=== PATIENT | female | born 1970 | race Caucasian/White ===

== ENCOUNTER 2019-08-15 09:24 | Day surgery (SDC) | payer MEDICAID ==
[~2019-08-15] VITALS: Ht 157.5 cm; Wt 52.2 kg
[2019-08-15] VITALS (11 sets, daily range): BP systolic 93–122; BP diastolic 44–76
[2019-08-15] MEDS ORDERED: diphenhydrAMINE 25mg capsule PO PRN (09:40)
[2019-08-15] MEDS ORDERED: normal saline 1,000 ML IV SCH (09:40)
[2019-08-15] MEDS ORDERED: nitroGLYCERIN 0.4mg SUBLingual tab SL PRN (09:40)
[2019-08-15] MEDS ORDERED: LORazepam 0.5 MG tablet PO PRN (09:40)
[2019-08-15] MEDS ORDERED: OMEG1CAP13 PO (10:37)
[2019-08-15] MEDS ORDERED: CALC200T PO (10:37)
[2019-08-15] MEDS ORDERED: ATOR20TA66 PO (10:37)
[2019-08-15] MEDS ORDERED: ASPI-1053 PO (10:37)
[2019-08-15 10:58] LABS: BASOPHILS % (AUTO) 0.6 % (0-1); EOSINOPHILS # (AUTO) 0.3 X10'3 (0-0.9); EOSINOPHILS % (AUTO) 3.6 % (0-6); HEMATOCRIT 38.7 % (35.0-45.0); HEMOGLOBIN 12.7 g/dl (12.0-16.0); LYMPHOCYTES # (AUTO) 2.3 X10'3 (1.1-4.8); LYMPHOCYTES % (AUTO) 29.5 % (21-51); MEAN CORPUSCULAR HEMOGLOBIN 28.7 PG (27.0-31.0); MEAN CORPUSCULAR HGB CONC 32.7 g/dL (33.0-36.5); MEAN CORPUSCULAR VOLUME 87.9 FL (78-98); MEAN PLATELET VOLUME 8.9 FL (7.4-10.4); MONOCYTES # (AUTO) 0.7 X10'3 (0-0.9); MONOCYTES % (AUTO) 9.7 % (2-12); NEUTROPHILS # (AUTO) 4.4 X10'3 (1.8-7.7); NEUTROPHILS % (AUTO) 56.6 % (42-75); PLATELET COUNT 210 X10'3 (140-440); RED BLOOD COUNT 4.41 X10'6 (4.20-5.60); RED CELL DISTRIBUTION WIDTH 19.6 % (11.5-14.5); WHITE BLOOD COUNT 7.7 X10'3 (4.5-11.0)
[2019-08-15 11:15] LABS: PARTIAL THROMBOPLASTIN TIME 26 SECONDS (22-32)
[2019-08-15 11:19] LABS: ALBUMIN 4.3 G/DL (3.4-5.0); ANION GAP 11 (8-16); BLOOD UREA NITROGEN 26 MG/DL (7-18); BUN/CREATININE RATIO 24.3 (6.6-38.0); CALCIUM 9.2 MG/DL (8.5-10.1); CHLORIDE 107 MMOL/L (99-107); CREATININE 1.07 MG/DL (0.40-0.90); GLUCOSE 90 MG/DL (70-104); POTASSIUM 4.3 MMOL/L (3.5-5.1); SODIUM 142 MMOL/L (135-145); TOTAL CARBON DIOXIDE 24.3 MMOL/L (24-32); eGFR 54 ML/MIN
[2019-08-15 11:38] LABS: ANISOCYTOSIS 2+; PLATELET ESTIMATE NORMAL
[2019-08-15] MEDS ORDERED: iohexol 350 MG/ML 50ML vial IV ONE (12:22)
[2019-08-15] MEDS ORDERED: fentaNYL/PF 50MCG/1 ML 2ML syringe ONE (12:22)
[2019-08-15] MEDS ORDERED: iohexol 350MG/ML 100ml bottle IV ONE (12:22)
[2019-08-15] MEDS ORDERED: LIDOcaine 1% (10mg/ml)w/preservative injection 20ml MDV ONE (12:22)
[2019-08-15] MEDS ORDERED: midazolam 2 mg/2 ml injection ONE (12:22)
[2019-08-15] MEDS ORDERED: HYDROcodone/acetaminophen 10/325mg tab PO PRN (13:55)
[2019-08-15] MEDS ORDERED: proCHLORperazine 10 MG/2 ml inj IV PRN (13:55)
[2019-08-15] MEDS ORDERED: OXAZEpam 15mg capsule PO PRN (13:55)
[2019-08-15] MEDS ORDERED: ondansetron/PF 4mg/2ml inj IV PRN (13:55)
[2019-08-15] MEDS ORDERED: HYDROcodone/acetaminophen 5mg/325mg tablet PO PRN (13:55)
[2019-08-15] MEDS ORDERED: sodium chloride 0.45% 1,000 ML IV SCH (13:55)
--- NOTE | 2019-08-15 19:39 | NUR ---
Agree with Carri Lutz's assessments, documentation, and interventions.
== END 2019-08-15 19:30 | disposition home or self-care (01) ==
LOC: SSTAY O 09:24
PROVIDERS: ATTEND Internal Medicine Cardiovascular Disease
DX: R94.39 Abnormal result of other cardiovascular function study (principal); I25.10 Atherosclerotic heart disease of native coronary artery without angina pectoris; Z79.01 Long term (current) use of anticoagulants; Z87.891 Personal history of nicotine dependence; Z79.899 Other long term (current) drug therapy; R06.09 Other forms of dyspnea
CPT/HCPCS: 36415; 71046; 80048; 83880; 85025; 85610; 85730; 93005; 93458; 99152; 99153; C1769; J1644; J2001; J2250; J3010; J7030; Q0163; Q9967; A4620; A6258

== ENCOUNTER 2022-06-09 00:04 | Inpatient (IN) | payer MEDICAID ==
[~2022-06-09] VITALS: Ht 154.9 cm; Wt 50.0 kg
[~2022-06-09 00:04] MED LIST: ASPI-1053 PO; ATOR20TA66 PO; CALC200T PO; OMEG-5 PO
[2022-06-09 00:58] LABS: BASOPHILS # (AUTO) 0.1 X10'3 (0-0.2); BASOPHILS % (AUTO) 0.7 % (0-1); EOSINOPHILS # (AUTO) 0.1 X10'3 (0-0.9); HEMATOCRIT 31.9 % (35.0-45.0); HEMOGLOBIN 10.6 g/dl (12.0-16.0); LYMPHOCYTES # (AUTO) 1.9 X10'3 (1.1-4.8); LYMPHOCYTES % (AUTO) 15.4 % (21-51); MEAN CORPUSCULAR HEMOGLOBIN 28.5 PG (27.0-31.0); MEAN CORPUSCULAR HGB CONC 33.1 g/dL (33.0-36.5); MEAN PLATELET VOLUME 8.7 FL (7.4-10.4); MONOCYTES % (AUTO) 8.3 % (2-12); NEUTROPHILS # (AUTO) 9.4 X10'3 (1.8-7.7); NEUTROPHILS % (AUTO) 74.6 % (42-75); PLATELET COUNT 300 X10'3 (140-440); RED BLOOD COUNT 3.71 X10'6 (4.20-5.60); RED CELL DISTRIBUTION WIDTH 19.1 % (11.5-14.5); WHITE BLOOD COUNT 12.6 X10'3 (4.5-11.0)
[2022-06-09 01:03] LABS: ALANINE AMINOTRANSFERASE 31 U/L (12-78); ALBUMIN 3.2 G/DL (3.4-5.0); ALKALINE PHOSPHATASE 202 IU/L (46-116); ANION GAP 7 (8-16); ASPARTATE AMINO TRANSFERASE 39 U/L (10-37); BILIRUBIN,TOTAL 0.6 MG/DL (0.1-1.0); BLOOD UREA NITROGEN 19 MG/DL (7-18); BUN/CREATININE RATIO 17.9 (10.0-20.0); CALCIUM 8.7 MG/DL (8.5-10.1); CHLORIDE 100 MMOL/L (99-107); CREATININE 1.06 MG/DL (0.40-0.90); GLUCOSE 116 MG/DL (70-104); SODIUM 133 MMOL/L (135-145); TOTAL CARBON DIOXIDE 25.8 MMOL/L (24-32); TOTAL PROTEIN 6.3 G/DL (6.4-8.2); eGFR 54 ML/MIN
[2022-06-09] MEDS ORDERED: HYDR-3686 PO (02:22)
[2022-06-09] MEDS ORDERED: FURO-150 PO (02:22)
[2022-06-09] MEDS ORDERED: DOXY-1 PO (02:22)
[2022-06-09] MEDS ORDERED: magnesium 4gm in 100ml NS 100 ML IV PRN (02:35)
[2022-06-09] MEDS ORDERED: bisacodyl 10mg suppository rectal RC PRN (02:35)
[2022-06-09] MEDS ORDERED: ondansetron 4mg rapidly disintigrating tab PO PRN (02:35)
[2022-06-09] MEDS ORDERED: mag hydrox/Alum hydrox/simeth 30ml oral suspension PO PRN (02:35)
[2022-06-09] MEDS ORDERED: diphenhydrAMINE 50 mg/ml inj IV PRN (02:35)
[2022-06-09] MEDS ORDERED: magnesium hydroxide 30ml (MOM) UD suspension PO PRN (02:35)
[2022-06-09] MEDS ORDERED: acetaminophen 325mg tablet PO PRN ×2 (02:35)
[2022-06-09] MEDS ORDERED: acetaminophen 650mg rectal suppository RC PRN (02:35)
[2022-06-09] MEDS ORDERED: ondansetron/PF 4mg/2ml inj IV PRN (02:35)
[2022-06-09] MEDS ORDERED: diphenhydrAMINE 25mg capsule PO PRN (02:35)
[2022-06-09] MEDS ORDERED: potassium Cl 20 mEq SR tablet PO PRN (02:35)
[2022-06-09] MEDS ORDERED: ipratropium/albuterol 3ml nebule NEB PRN (02:35)
[2022-06-09] MEDS ORDERED: normal saline 1000ml 1,000 ML IV SCH (02:35)
[2022-06-09] MEDS ORDERED: magnesium Cl slow-release 64mg tablet PO PRN (02:35)
[2022-06-09] MEDS ORDERED: potassium Cl 40MEQ/1/2NS 520ml 520 ML IV PRN (02:35)
[2022-06-09] MEDS ORDERED: morphine 2 MG/ML inj. syringe IV PRN (02:35)
[2022-06-09] MEDS ORDERED: digoxin 250mcg (0.25mg) tablet PO SCH (02:50)
[2022-06-09] MEDS: CefTRIAXone/D5W-Rocephin 1gm 50 ML IV SCH (03:03)
[2022-06-09] MEDS ORDERED: digoxin 125mcg (0.125mg) tablet PO SCH ×2 (03:09→03:16)
[2022-06-09 03:23] LABS: HEMOGLOBIN A1C 5.6 % (4.5-6.2)
[2022-06-09 03:37] LABS: CREATINE KINASE 104 U/L (26-192); MAGNESIUM 1.6 MG/DL (1.5-2.4); PHOSPHORUS 4.1 MG/DL (2.3-4.5)
[2022-06-09 03:41] LABS: POTASSIUM 3.3 MMOL/L (3.5-5.1)
[2022-06-09 03:45] LABS: CLARITY,URINE CLEAR (Clear); COLOR,URINE STRAW (Yellow); GLUCOSE, URINE NEGATIVE (Neg); KETONES,URINE NEGATIVE (Neg); LEUKOCYTE ESTERASE ,URINE NEGATIVE (Neg); NITRITES, URINE NEGATIVE (Neg); OCCULT BLOOD,URINE MODERATE (Neg); PH,URINE 5.5 (4.8-8.0); PROTEIN,URINE NEGATIVE (Neg); UROBILINOGEN,URINE 0.2 E.U/dL (0.2-1.0)
[2022-06-09 03:45] LABS: APTT 25 SECONDS (22-32); D-DIMER 0.58 MG/L FEU (0-0.50)
[2022-06-09 03:46] LABS: UA COLLECTION TYPE CLN CATCH MIDSTREAM
[2022-06-09 03:54] LABS: WBC,URINE 0-4 /HPF (0-4)
[2022-06-09 03:55] LABS: BACTERIA,URINE NONE SEEN /HPF (Neg); MUCUS STRANDS FEW /LPF (Neg); SQUAMOUS EPITHELIAL CELL,UR FEW /LPF (FEW)
[2022-06-09 04:03] LABS: URINE AMPHETAMINE SCREEN NEGATIVE (Neg); URINE BARBITUATE SCREEN NEGATIVE (Neg); URINE BENZODIAZEPINES SCREEN NEGATIVE (Neg); URINE CANNABINOID SCREEN NEGATIVE (Neg); URINE COCAINE SCREEN NEGATIVE (Neg); URINE METHADONE SCREEN NEGATIVE (Neg); URINE OPIATE SCREEN NEGATIVE (Neg); URINE PHENCYCLIDINE SCREEN NEGATIVE (Neg)
[2022-06-09 04:34] LABS: PLATELET ESTIMATE NORMAL
[2022-06-09 04:35] LABS: ANISOCYTOSIS 2+
[2022-06-09 04:37] LABS: POLYCHROMASIA FEW
[2022-06-09 04:39] LABS: BURR CELLS FEW
[2022-06-09] MEDS ORDERED: LORazepam 0.5 MG tablet PO ONE (05:00)
[2022-06-09] MEDS: potassium Cl 20 mEq SR tablet PO PRN ×2 (06:42→11:46)
[2022-06-09] MEDS ORDERED: furosemide 10 MG/1 ML 10ml inj IV SCH ×2 (08:00)
[2022-06-09] MEDS: K and/or MAG REPLACEMENT MC SCH ×2 (08:00→20:00)
[2022-06-09] MEDS: azithromycin/NS 500mg/250ml 250 ML IV SCH (08:27)
[2022-06-09] MEDS: atorvastatin 20mg tablet PO SCH (08:28)
[2022-06-09] MEDS: aspirin 81mg, enteric-coated 1 TAB TABLET.DR PO SCH (08:28)
[2022-06-09] MEDS: pantoprazole 40mg Tablet.DR PO SCH (08:29)
[2022-06-09] MEDS: docusate sod 100mg capsule PO SCH ×2 (08:29→20:00)
[2022-06-09] MEDS: methylPREDNISolone sod succ 125mg/2ml vial IV SCH ×2 (08:31→20:32)
[2022-06-09] MEDS: heparin, porcine 5000 units/ml vial SQ SCH ×2 (08:32→20:35)
[2022-06-09] MEDS: sacubitril/valsartan 24mg-26mg tablet PO SCH ×2 (08:32→20:26)
[2022-06-09] MEDS: furosemide 40mg/4ml inj IV SCH ×2 (08:32→20:39)
[2022-06-09] MEDS: spironolactone 25 MG tablet PO SCH (10:56)
--- NOTE | 2022-06-09 11:09 | NUR ---
attempted to call report but nurse was unavailable at this time .
[2022-06-09 12:53] VITALS: BP 111/87
[2022-06-09] MEDS ORDERED: MULT-661 PO (15:12)
--- NOTE | 2022-06-09 16:22 | NUR ---
S/W patient and pharmacist Srinivasa. Doxycycline was the only new thing introduced the day she called 911. Confirmed pt has a new allergy of doxycycline, educated pt and updated EMR. Pt c/o RLS. Will page Dr Martinez for medication. Addendum: 06/09/22 at 1627 by Fadia Mariano RN Paged Dr Martinez: Linnette NatarajanA pt c/o RLS. No meds ordered. Requip? Fadia Brown Addendum: 06/09/22 at 1719 by Fadia Mariano RN 2nd page: Linnette Bethea pt c/o RLS. No meds ordered. Requip? Fadia Brown Addendum: 06/09/22 at 1733 by Fadia Marinao RN Dr Martinez called. Pt does not take requip or anything for RLS at home and declined to prescribe new med. Stated "she can take that up with her PCP in outpatient setting":. RN relayed and pt verbalized understanding.
[2022-06-09 17:00] VITALS: BP 102/65
[2022-06-09 18:00] VITALS: BP 101/55
--- NOTE | 2022-06-09 18:30 | NUR ---
Patient in room [facility]. I have received report from HENOK FAN and had the opportunity to ask questions and assume patient care.
[2022-06-09] MEDS: hydrOXYzine 25 MG tablet PO SCH (20:26)
[2022-06-09] MEDS: HYDROcodone/acetaminophen 5mg/325mg tablet PO PRN (20:28)
[2022-06-09] MEDS ORDERED: temazepam 15mg capsule PO PRN (21:00)
[2022-06-09 22:00] VITALS: BP 94/56
[2022-06-10] MEDS: HYDROcodone/acetaminophen 5mg/325mg tablet PO PRN ×4 (02:52→20:26)
[2022-06-10] MEDS: CefTRIAXone/D5W-Rocephin 1gm 50 ML IV SCH (03:39)
--- NOTE | 2022-06-10 06:19 | NUR ---
Problems reprioritized. Patient report given, questions answered & plan of care reviewed with MATI FAN.
[2022-06-10 06:20] LABS: BASOPHILS % (AUTO) 0.1 % (0-1); EOSINOPHILS % (AUTO) 0 % (0-6); HEMATOCRIT 38.4 % (35.0-45.0); HEMOGLOBIN 12.5 g/dl (12.0-16.0); LYMPHOCYTES # (AUTO) 0.6 X10'3 (1.1-4.8); LYMPHOCYTES % (AUTO) 2.3 % (21-51); MEAN CORPUSCULAR HGB CONC 32.4 g/dL (33.0-36.5); MEAN CORPUSCULAR VOLUME 86.4 FL (78-98); MEAN PLATELET VOLUME 9.2 FL (7.4-10.4); MONOCYTES # (AUTO) 0.4 X10'3 (0-0.9); MONOCYTES % (AUTO) 1.4 % (2-12); NEUTROPHILS # (AUTO) 23.6 X10'3 (1.8-7.7); NEUTROPHILS % (AUTO) 96.2 % (42-75); PLATELET COUNT 347 X10'3 (140-440); RED BLOOD COUNT 4.45 X10'6 (4.20-5.60); RED CELL DISTRIBUTION WIDTH 19.1 % (11.5-14.5); WHITE BLOOD COUNT 24.5 X10'3 (4.5-11.0)
[2022-06-10 06:33] LABS: ALANINE AMINOTRANSFERASE 26 U/L (12-78); ALBUMIN 2.9 G/DL (3.4-5.0); ALBUMIN/GLOBULIN RATIO 0.9 (1.1-1.5); ALKALINE PHOSPHATASE 188 IU/L (46-116); ANION GAP 10 (8-16); ASPARTATE AMINO TRANSFERASE 27 U/L (10-37); BILIRUBIN,TOTAL 0.3 MG/DL (0.1-1.0); BLOOD UREA NITROGEN 33 MG/DL (7-18); CALCIUM 8.5 MG/DL (8.5-10.1); CHLORIDE 103 MMOL/L (99-107); CHOL/HDL RATIO 6.5 (0.00-4.99); CHOLESTEROL 181 MG/DL (0-200); CREATININE 1.18 MG/DL (0.40-0.90); GLUCOSE 178 MG/DL (70-104); HDL CHOLESTEROL 28 MG/DL (35-60); LDL CHOLESTEROL 133 MG/DL (50-100); POTASSIUM 3.9 MMOL/L (3.5-5.1); SODIUM 140 MMOL/L (135-145); TOTAL CARBON DIOXIDE 27.2 MMOL/L (24-32); TOTAL PROTEIN 6.1 G/DL (6.4-8.2); TRIGLYCERIDES 85 MG/DL (20-135); eGFR 48 ML/MIN
[2022-06-10 07:11] VITALS: BP 100/60
[2022-06-10] MEDS: pantoprazole 40mg Tablet.DR PO SCH (07:39)
[2022-06-10] MEDS: digoxin 125mcg (0.125mg) tablet PO SCH (07:39)
[2022-06-10] MEDS: aspirin 81mg, enteric-coated 1 TAB TABLET.DR PO SCH (07:39)
[2022-06-10] MEDS: sacubitril/valsartan 24mg-26mg tablet PO SCH ×2 (07:40→20:25)
[2022-06-10] MEDS: atorvastatin 20mg tablet PO SCH (07:40)
[2022-06-10] MEDS: spironolactone 25 MG tablet PO SCH (07:40)
[2022-06-10] MEDS: heparin, porcine 5000 units/ml vial SQ SCH ×2 (07:41→20:25)
[2022-06-10] MEDS: azithromycin/NS 500mg/250ml 250 ML IV SCH (07:46)
[2022-06-10] MEDS: docusate sod 100mg capsule PO SCH ×2 (07:46→20:25)
[2022-06-10] MEDS: K and/or MAG REPLACEMENT MC SCH ×2 (08:00→20:17)
[2022-06-10] MEDS: methylPREDNISolone sod succ 125mg/2ml vial IV SCH ×2 (08:35→20:26)
[2022-06-10] MEDS: furosemide 40mg/4ml inj IV SCH ×2 (09:22→20:26)
[2022-06-10 12:15] VITALS: BP 104/59
[2022-06-10 13:00] VITALS: BP 101/55
[2022-06-10 15:32] VITALS: BP 105/55
--- NOTE | 2022-06-10 16:22 | NUR ---
Pt educated on use of incentive spirometer with teach back, pt was able to reach 1500ml
[2022-06-10 18:00] VITALS: BP 104/67
--- NOTE | 2022-06-10 18:49 | NUR ---
Problems reprioritized. Patient report given, questions answered & plan of care reviewed with MITA Griffith.
--- NOTE | 2022-06-10 19:08 | NUR ---
Problems reprioritized. Patient report given, questions answered & plan of care reviewed with MITA Carl.
--- NOTE | 2022-06-10 19:32 | NUR ---
Patient in room [facility]. I have received report from MATI FAN and had the opportunity to ask questions and assume patient care.
[2022-06-10] MEDS: hydrOXYzine 25 MG tablet PO SCH (20:26)
[2022-06-10 22:00] VITALS: BP 98/53
[2022-06-11] MEDS: HYDROcodone/acetaminophen 5mg/325mg tablet PO PRN ×4 (00:40→20:42)
[2022-06-11] MEDS: CefTRIAXone/D5W-Rocephin 1gm 50 ML IV SCH (03:30)
--- NOTE | 2022-06-11 06:22 | NUR ---
Problems reprioritized. Patient report given, questions answered & plan of care reviewed with RONDA FAN.
[2022-06-11 07:19] LABS: ALANINE AMINOTRANSFERASE 22 U/L (12-78); ALBUMIN 2.9 G/DL (3.4-5.0); ALBUMIN/GLOBULIN RATIO 0.9 (1.1-1.5); ALKALINE PHOSPHATASE 193 IU/L (46-116); ANION GAP 9 (8-16); ASPARTATE AMINO TRANSFERASE 24 U/L (10-37); BILIRUBIN,TOTAL 0.2 MG/DL (0.1-1.0); BLOOD UREA NITROGEN 38 MG/DL (7-18); BUN/CREATININE RATIO 32.5 (10.0-20.0); CALCIUM 8.5 MG/DL (8.5-10.1); CHLORIDE 100 MMOL/L (99-107); CREATININE 1.17 MG/DL (0.40-0.90); GLUCOSE 184 MG/DL (70-104); POTASSIUM 3.6 MMOL/L (3.5-5.1); SODIUM 140 MMOL/L (135-145); TOTAL CARBON DIOXIDE 31.4 MMOL/L (24-32); TOTAL PROTEIN 6.1 G/DL (6.4-8.2); eGFR 48 ML/MIN
[2022-06-11 07:29] LABS: BASOPHILS # (AUTO) 0.1 X10'3 (0-0.2); BASOPHILS % (AUTO) 0.4 % (0-1); EOSINOPHILS % (AUTO) 0 % (0-6); HEMATOCRIT 37.7 % (35.0-45.0); HEMOGLOBIN 12.1 g/dl (12.0-16.0); LYMPHOCYTES # (AUTO) 0.6 X10'3 (1.1-4.8); LYMPHOCYTES % (AUTO) 1.8 % (21-51); MEAN CORPUSCULAR HEMOGLOBIN 27.6 PG (27.0-31.0); MEAN CORPUSCULAR HGB CONC 32.1 g/dL (33.0-36.5); MEAN CORPUSCULAR VOLUME 85.9 FL (78-98); MEAN PLATELET VOLUME 9.3 FL (7.4-10.4); MONOCYTES # (AUTO) 0.6 X10'3 (0-0.9); MONOCYTES % (AUTO) 1.7 % (2-12); NEUTROPHILS # (AUTO) 31.8 X10'3 (1.8-7.7); NEUTROPHILS % (AUTO) 96.1 % (42-75); PLATELET COUNT 387 X10'3 (140-440); RED BLOOD COUNT 4.39 X10'6 (4.20-5.60)
[2022-06-11 07:37] VITALS: BP 101/58
[2022-06-11 07:43] LABS: WHITE BLOOD COUNT 33.1 X10'3 (4.5-11.0)
--- NOTE | 2022-06-11 07:49 | NUR ---
PAGER ID: [phone] MESSAGE: Serenity Anglin 350A Pt has ef of 20% not on tele?? Also critical value WBC 33.1. Pt. on Solumedrol. yesterdays WBC 24.5. Areli [phone]
[2022-06-11] MEDS: K and/or MAG REPLACEMENT MC SCH ×2 (08:00→20:33)
[2022-06-11] MEDS: digoxin 125mcg (0.125mg) tablet PO SCH (08:04)
[2022-06-11] MEDS: sacubitril/valsartan 24mg-26mg tablet PO SCH ×2 (08:05→20:42)
[2022-06-11] MEDS: aspirin 81mg, enteric-coated 1 TAB TABLET.DR PO SCH (08:06)
[2022-06-11] MEDS: docusate sod 100mg capsule PO SCH ×2 (08:06→20:00)
[2022-06-11] MEDS: atorvastatin 20mg tablet PO SCH (08:07)
[2022-06-11] MEDS: pantoprazole 40mg Tablet.DR PO SCH (08:09)
[2022-06-11] MEDS: heparin, porcine 5000 units/ml vial SQ SCH ×2 (08:12→20:41)
[2022-06-11] MEDS: azithromycin/NS 500mg/250ml 250 ML IV SCH (08:19)
[2022-06-11] MEDS: spironolactone 25 MG tablet PO SCH (08:30)
--- NOTE | 2022-06-11 08:40 | NUR ---
Student Medication Administration: For this medication-pass time frame, all medication were reviewed, dispensed, administered and documented per hospital policy by Amirah LUTZ and Lula Styles RN.
[2022-06-11 08:56] VITALS: BP 103/58
[2022-06-11 09:35] LABS: ANISOCYTOSIS 2+; PLATELET ESTIMATE NORMAL; TOTAL CELLS COUNTED 100
[2022-06-11 09:36] LABS: POLYCHROMASIA FEW
[2022-06-11 10:15] VITALS: BP 108/62
[2022-06-11] MEDS: methylPREDNISolone sod succ 125mg/2ml vial IV SCH (12:43)
[2022-06-11] MEDS: furosemide 40mg/4ml inj IV SCH ×2 (12:43→20:42)
[2022-06-11 18:00] VITALS: BP 118/74
--- NOTE | 2022-06-11 18:41 | NUR ---
GAVE REPORT TO PRKETANE N.
--- NOTE | 2022-06-11 18:46 | NUR ---
Patient in room [facility]. I have received report from RONDA FAN and had the opportunity to ask questions and assume patient care.
--- NOTE | 2022-06-11 19:18 | NUR ---
Student documentation: I have reviewed and agree with all interventions, assessments performed and documented by Erica Hernandez SN by Lenny Styles RN Instructor.
[2022-06-11] MEDS: hydrOXYzine 25 MG tablet PO SCH (20:41)
[2022-06-11 22:00] VITALS: BP 120/84
[2022-06-12] MEDS: HYDROcodone/acetaminophen 5mg/325mg tablet PO PRN (00:43)
[2022-06-12] MEDS: CefTRIAXone/D5W-Rocephin 1gm 50 ML IV SCH (03:14)
--- NOTE | 2022-06-12 06:30 | NUR ---
Problems reprioritized. Patient report given, questions answered & plan of care reviewed with RONDA FAN.
[2022-06-12 06:42] LABS: BASOPHILS # (AUTO) 0.3 X10'3 (0-0.2); BASOPHILS % (AUTO) 1.1 % (0-1); EOSINOPHILS % (AUTO) 0 % (0-6); HEMATOCRIT 41.7 % (35.0-45.0); HEMOGLOBIN 13.3 g/dl (12.0-16.0); LYMPHOCYTES # (AUTO) 0.8 X10'3 (1.1-4.8); MEAN CORPUSCULAR HEMOGLOBIN 27.7 PG (27.0-31.0); MEAN CORPUSCULAR VOLUME 86.6 FL (78-98); MEAN PLATELET VOLUME 9.5 FL (7.4-10.4); MONOCYTES # (AUTO) 1.3 X10'3 (0-0.9); MONOCYTES % (AUTO) 4.7 % (2-12); NEUTROPHILS # (AUTO) 25.7 X10'3 (1.8-7.7); NEUTROPHILS % (AUTO) 91.2 % (42-75); PLATELET COUNT 411 X10'3 (140-440); RED BLOOD COUNT 4.81 X10'6 (4.20-5.60); RED CELL DISTRIBUTION WIDTH 18.8 % (11.5-14.5)
[2022-06-12 06:50] LABS: WHITE BLOOD COUNT 28.2 X10'3 (4.5-11.0)
--- NOTE | 2022-06-12 06:56 | NUR ---
PAGER ID: [phone] MESSAGE: Tia UMAÑA 350A fyi MUST NOTIFY YOU ABOUT CRITICAL WBC 28.2 ON SOLUMEDROL RONDA [id number]
[2022-06-12 06:57] LABS: ALANINE AMINOTRANSFERASE 23 U/L (12-78); ALBUMIN 2.9 G/DL (3.4-5.0); ALBUMIN/GLOBULIN RATIO 0.9 (1.1-1.5); ALKALINE PHOSPHATASE 170 IU/L (46-116); ANION GAP 6 (8-16); ASPARTATE AMINO TRANSFERASE 20 U/L (10-37); BILIRUBIN,TOTAL 0.2 MG/DL (0.1-1.0); BLOOD UREA NITROGEN 36 MG/DL (7-18); BUN/CREATININE RATIO 40.9 (10.0-20.0); CALCIUM 8.3 MG/DL (8.5-10.1); CHLORIDE 101 MMOL/L (99-107); CREATININE 0.88 MG/DL (0.40-0.90); GLUCOSE 142 MG/DL (70-104); SODIUM 138 MMOL/L (135-145); TOTAL PROTEIN 6.3 G/DL (6.4-8.2); eGFR 67 ML/MIN
--- NOTE | 2022-06-12 07:05 | NUR ---
PAGER ID: [phone] MESSAGE: WILLIAM UMAÑA 350A CRITICAL K OF 3.0. NO POTASSIUM ORDERED. Loki [phone]
[2022-06-12 07:14] VITALS: BP 112/75
[2022-06-12 07:55] LABS: ANISOCYTOSIS 2+; PLATELET ESTIMATE NORMAL; POIKILOCYTOSIS FEW; POLYCHROMASIA FEW; TOTAL CELLS COUNTED 100
[2022-06-12] MEDS: docusate sod 100mg capsule PO SCH (08:00)
[2022-06-12] MEDS: furosemide 40mg/4ml inj IV SCH (08:00)
[2022-06-12] MEDS: digoxin 125mcg (0.125mg) tablet PO SCH (08:20)
[2022-06-12] MEDS: pantoprazole 40mg Tablet.DR PO SCH (08:21)
[2022-06-12] MEDS: atorvastatin 20mg tablet PO SCH (08:21)
[2022-06-12] MEDS: aspirin 81mg, enteric-coated 1 TAB TABLET.DR PO SCH (08:21)
[2022-06-12] MEDS: heparin, porcine 5000 units/ml vial SQ SCH (08:23)
[2022-06-12] MEDS: sacubitril/valsartan 24mg-26mg tablet PO SCH (08:23)
[2022-06-12] MEDS: azithromycin/NS 500mg/250ml 250 ML IV SCH (08:23)
[2022-06-12] MEDS: spironolactone 25 MG tablet PO SCH (08:26)
[2022-06-12] MEDS: K and/or MAG REPLACEMENT MC SCH (08:26)
[2022-06-12 10:30] VITALS: BP 100/61
--- NOTE | 2022-06-12 11:50 | NUR ---
PAGER ID: [phone] MESSAGE: Linnette Benton 350A Critical k 3.0 nothing ordered. Thank you Areli [phone]
[2022-06-12] MEDS ORDERED: potassium Cl 20 mEq SR tablet PO STA (12:09)
[2022-06-12] MEDS ORDERED: SACU1TAB PO (12:16)
[2022-06-12] MEDS ORDERED: FURO-150 PO (12:16)
[2022-06-12] MEDS ORDERED: CARV3.12 PO (12:16)
--- NOTE | 2022-06-12 12:46 | NUR ---
AGER ID: [phone] MESSAGE: WILLIAM CHASIDY 350B PT. HAS NOT BEEN GETTING BOTH LASIX AND SPIROLACTONE. aLSO SINCE YOU ARE INCREASING LASIX DOSE DO YOU WANT TO ORDER POTASSIUM FOR HOME? Loki [phone]
--- NOTE | 2022-06-12 15:00 | NUR ---
Juan rounded on floor. Discussed discharge medications with him and he does not want to make any changes at this time.
[2022-06-12] MEDS ORDERED: SPIR25TA PO (15:52)
--- NOTE | 2022-06-12 16:39 | NUR ---
Pt. requested medications to go to [facility] on [address]. [facility] [place] made aware. Spoke with Yon pharmacist at [facility] in [place] - he states meds will be ready in 45 minutes. Pt. and family made aware.
--- NOTE | 2022-06-12 16:45 | NUR ---
DISCHARGE NOTE: Reviewed discharge paperwork with pt. She plans to call her or [facility] registered nurse and PCP Tuesday for a f/u appointment. She agrees to monitor her own BP at home and watch for any possible ASE of her medications. She has gathered all of her belongings. Reviewed discharge medications. She had the opportunity to ask questions and did not have any. No further instructions from hospitalist. PIV removed, cannula intact, no s/sx bleeding noted, pressure bandage applied. Pt. wheeled to her private ride home in family vehicle in a w/c.
== END 2022-06-12 16:45 | disposition home or self-care (01) | DRG 194 ==
LOC: ER 00:05 → ED HOLD 02:45 → SUR 3N 12:30
PROVIDERS: ADMIT Family Medicine; ATTEND Internal Medicine
DX: I50.23 Acute on chronic systolic (congestive) heart failure (principal); I21.A1 Myocardial infarction type 2; I27.20 Pulmonary hypertension, unspecified; J18.9 Pneumonia, unspecified organism; Z20.822 Contact with and (suspected) exposure to COVID-19; I27.81 Cor pulmonale (chronic); I42.7 Cardiomyopathy due to drug and external agent; K76.1 Chronic passive congestion of liver; E78.5 Hyperlipidemia, unspecified; F15.11 Other stimulant abuse, in remission; J44.0 Chronic obstructive pulmonary disease with (acute) lower respiratory infection; D64.9 Anemia, unspecified; N17.9 Acute kidney failure, unspecified; N18.9 Chronic kidney disease, unspecified; E87.6 Hypokalemia; I45.10 Unspecified right bundle-branch block; J44.1 Chronic obstructive pulmonary disease with (acute) exacerbation; Z79.899 Other long term (current) drug therapy; Z87.891 Personal history of nicotine dependence
CPT/HCPCS: 36415; 71045; 80053; 80061; 80305; 81001; 82550; 83036; 83735; 83880; 84100; 84132; 84145; 84443; 84484; 85007; 85008; 85025; 85379; 85610; 85730; 87081; 87811; 93005; 93306; 94760; 99285; A4615; G0378; J0456; J0696; J1644; J1940; J2405; J2930; J7030; J7040; Q0177